=== PATIENT | male | born 1960 | race Caucasian/White ===

== ENCOUNTER 2018-09-19 17:24 | Emergency (ER) | payer BC, OTHER ==
[2018-09-19] MEDS ORDERED: ACETAMINOPHEN 325 MG TABLET (FP) PO ONE (17:37)
[2018-09-19] MEDS ORDERED: ACETAMINOPHEN 325 MG TABLET (FP) ONE (17:46)
--- NOTE | 2018-09-19 17:47 | PDOC ---
History of Present Illness - General Chief Complaint: Injury Stated Complaint: RIGHT FOOT 4 TH TOE INJUY Time Seen by Provider: 09/19/18 17:31 History Source: Patient Exam Limitations: No Limitations - History of Present Illness Initial Comments: 09/19/18 17:44 58y M hx of htn, hlm, cad presents with L 4th toe pain sp stubbing his toe on the closet. Pt notes he heard a 'crack' with immediate pain to his left 4th toe. the pain has since improved. no numbness/tingling/weakness. no falls or toher injuries. Past History - Past Medical History Allergies/Adverse Reactions: Allergies Allergy/AdvReac Type Severity Reaction Status Date / Time No Known Allergies Allergy Unverified 09/19/18 17:25 Home Medications: Ambulatory Orders Albuterol Sulfate [Proventil HFA Inhaler -] 1 - 2 inh PO BID 09/19/18 Amlodipine Besylate [Norvasc -] 10 mg PO DAILY 09/19/18 Clopidogrel Bisulfate [Plavix] 75 mg PO DAILY 09/19/18 Fluoxetine HCl [Prozac] 40 mg PO DAILY 09/19/18 Fluticasone Propionate [Flovent Diskus] 50 mcg IH BID 09/19/18 Lisinopril [Prinivil -] 40 mg PO DAILY 09/19/18 Metoprolol Succinate [Toprol Xl] 50 mg PO DAILY 09/19/18 Montelukast Sodium [Singulair] 10 mg PO HS 09/19/18 Simvastatin 40 mg PO HS 09/19/18 metFORMIN HCL [Glucophage -] 850 mg PO TID 09/19/18 Review of Systems - Review of Systems Able to Perform ROS?: Yes Comments:: 09/19/18 17:46 ROS: MSK: no numnbess/tingling/weakness, +L 4th toe pain GENERAL: denies fever *Physical Exam - Physical Exam Comments: 09/19/18 17:46 exam: general: generally well appaering, no distress extremity: mild ttp to 4th digit of L foot. no erythema, ecchymosis, mild pain on ROM. no focal ttp to ankle, or other areas of foot or digit. ED Treatment Course - RADIOLOGY Radiology Studies Ordered: Category Date Time Status FOOT-RIGHT [RAD] Stat Radiology 09/19/18 17:36 Ordered Medical Decision Making - Medical Decision Making 09/19/18 17:47 suspect sprain/contusion vs. fx will obtiain xray tylenol for pain 09/19/18 18:46 on my wet read of the pts foot xray, suspect minimally displaced fracture on the shaft of the 4th digit will budy tape to splint for comfort tyleno/motrin for pain control will have pt fu with pmd return precautions wre discussed *DC/Admit/Observation/Transfer Diagnosis at time of Disposition: Fracture of toe of right foot Qualifiers: Encounter type: initial encounter Toe: lesser toe Fracture type: closed Phalanx : proximal Fracture alignment: displaced Qualified Code(s): S92.511A - Displaced fracture of proximal phalanx of right lesser toe(s), initial encounter for closed fracture - Discharge Dispostion Disposition: HOME Condition at time of disposition: Stable Decision to Admit order: No - Referrals - Patient Instructions Printed Discharge Instructions: DI for Toe Fracture Additional Instructions: Return to the emergency department immediately with ANY new, persistent or worsening symptoms. Use the tape and gauze to splint your toes. Take motrin or tyleol for pain. You MUST call and follow up with your doctor tomorrow for further evaluation of your symptoms. Results were discussed with you. Please make sure your doctor reviews the results of your emergency evaluation. If you had any xrays during your visit, it was read preliminarily by myself, a Radiologist will review it and if there are any additional findings we will call you. Print Language: SWEDISH - Post Discharge Activity
[2018-09-19 18:14] VITALS: BP 181/97; PULSE 79; TEMP 97.1; BMI 33.9
== END 2018-09-19 19:05 | disposition home or self-care (01) ==
LOC: FER 17:24
PROC: 2W3VXYZ Immobilization of Left Toe using Other Device (ICD-10-PCS; principal; 2018-09-19)
DX: S92.511A Displaced fracture of proximal phalanx of right lesser toe(s), initial encounter for closed fracture (principal); W22.01XA Walked into wall, initial encounter; Y93.89 Activity, other specified; Y92.009 Unspecified place in unspecified non-institutional (private) residence as the place of occurrence of the external cause
CPT/HCPCS: 73630-TC-RT-FY; 99281-25

== ENCOUNTER 2020-08-04 19:00 | Emergency (ER) | payer OTHER ==
[2020-08-04 19:16] VITALS: BP 172/97; PULSE 85; TEMP 99.2; BMI 33.5
[2020-08-04] MEDS ORDERED: IBUPROFEN 400 MG TABLET (FP) PO ONE ×2 (19:52→20:06)
[2020-08-04] MEDS ORDERED: DIPHTH,PERTUSS(ACELL),TET 0.5 ML DISP.SYRIN IM ONE (19:52)
== END 2020-08-04 21:22 | disposition home or self-care (01) ==
LOC: FER 19:00
PROC: 3E0234Z Introduction of Serum, Toxoid and Vaccine into Muscle, Percutaneous Approach (ICD-10-PCS; principal; 2020-08-04)
DX: S22.31XA Fracture of one rib, right side, initial encounter for closed fracture (principal)
CPT/HCPCS: 71046-TC-FY; 73070-TC-LT-FY; 90715; 99284-25

== ENCOUNTER 2020-09-03 00:36 | Emergency (ER) | payer OTHER ==
[2020-09-03 01:03] VITALS: BMI 27.1
[2020-09-03] MEDS ORDERED: ACETAMINOPHEN 325 MG TABLET (FP) PO ONE (02:22)
[2020-09-03] MEDS ORDERED: ACETAMINOPHEN 325 MG TABLET (FP) ONE (02:42)
[2020-09-03 07:02] VITALS: BP 148/77; PULSE 79; TEMP 98.2
== END 2020-09-03 08:30 | disposition home or self-care (01) ==
LOC: JER 00:36
DX: S09.90XA Unspecified injury of head, initial encounter (principal)
CPT/HCPCS: 70450-TC; 72125-TC; 99285-25